=== PATIENT | female | born 1985 | race Two or more races ===

== ENCOUNTER 2016-07-15 10:39 | Emergency (ER) | payer SELFPAY ==
[2016-07-15 10:56] VITALS: BP 114/75; PULSE 72; TEMP 98.3; BMI 26.4
[2016-07-15] MEDS ORDERED: KETOROLAC TROMETHAMINE 60 MG/2 ML VIAL IM ONE (11:44)
[2016-07-15] MEDS ORDERED: KETOROLAC TROMETHAMINE 60 MG/2 ML VIAL ONE (11:50)
--- NOTE | 2016-07-15 11:51 | PDOC ---
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 She states has taken 2 doses of 400 mg of Advil with minimal affect patient denies recent injury to the affected area, sensory changes distally, radiation of pain, swelling to the area, saddle anesthesia or incontinence. Patient states pain is worsened with standing and ambulation. Patient has no other complaints at this time. Occurred: reports: other (2 days) Severity: reports: moderate Pain Location: reports: back Method of Injury: Yes: other Loss of Consciousness: no loss of consciousness Associated Symptoms (Fall): trouble walking (pain with ambulation) Past History - Travel Traveled outside of the country in the last 30 days: No Close contact w/someone who was outside of country & ill: No - Past Medical History Allergies/Adverse Reactions: Allergies Allergy/AdvReac Type Severity Reaction Status Date / Time No Known Allergies Allergy Verified 07/15/16 11:34 Home Medications: Ambulatory Orders Cyclobenzaprine HCl [Flexeril 10 mg] 5 mg PO BID PRN #12 tablet 07/15/16 Naproxen [EC-Naprosyn] 375 mg PO BID PRN #14 tablet.ec 07/15/16 - Psycho/Social/Smoking Cessation Hx Suicidal Ideation: No Smoking History: Never smoked Have you smoked in the past 12 months: No Information on smoking cessation initiated: No Hx Alcohol Use: No Drug/Substance Use Hx: No Patient Lives Alone: No Lives with/in: family Trauma Specific PMHX - Complaint Specific PMHX Back Injury: Yes Review of Systems - Review of Systems Able to Perform ROS?: Yes Constitutional: No: Symptoms Reported Musculoskeletal: Yes: Back Pain Integumentary: No: Symptoms Reported Neurological: No: Symptoms reported Endocrine: No: Symptoms Reported Hematologic/Lymphatic: No: Symptoms Reported *Physical Exam - Vital Signs Last Vital Signs Temp Pulse Resp BP Pulse Ox 98.3 F 72 16 114/75 97 07/15/16 10:51 07/15/16 10:51 07/15/16 10:51 07/15/16 10:51 07/15/16 10:51 - Physical Exam General Appearance: Yes: Nourished, Appropriately Dressed. No: Apparent Distress Neck: positive: Supple. negative: Tender, Decreased range of motion Cardiovascular: positive: Regular Rhythm, Regular Rate. negative: Murmur Musculoskeletal: positive: Muscle Spasm (left paraspinous at l4 level), Vertebral Tenderness (l4 tenderness) Extremity: positive: Normal Capillary Refill. 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 Patient on exam had point tenderness at L4 and laterally to the left at the paraspinous muscle region. Patient has no sensory changes or decreased strength. Patient ordered for lumbar x-ray, and Toradol 07/15/16 13:14 Patient states then much better and is able to ambulate and sit up without difficulty. X-ray negative for acute findings. Patient be discharged home with medication if pain is to return, rest, and apply ice. *DC/Admit/Observation/Transfer Diagnosis at time of Disposition: Strain of lumbar paraspinal muscle Qualifiers: Encounter type: initial encounter Qualified Code(s): S39.012A - Strain of muscle, fascia and tendon of lower back, initial encounter - Discharge Dispostion Disposition: HOME Condition at time of disposition: Improved - Prescriptions Prescriptions: Naproxen [EC-Naprosyn] 375 mg PO BID PRN #14 tablet.ec PRN Reason: Back Pain Cyclobenzaprine HCl [Flexeril 10 mg] 5 mg PO BID PRN #12 tablet PRN Reason: Back Pain - Patient Instructions Printed Discharge Instructions: DI for Low Back Pain Additional Instructions: Please take Naprosyn and Flexeril as prescribed. Rest, and apply ice to the affected area 72 hours. - Post Discharge Activity Work/School Note: Back to Work
== END 2016-07-15 13:26 | disposition home or self-care (01) ==
LOC: JERFT 10:39 → JER 10:39 → JERFT 13:26
PROC: 3E0333Z Introduction of Anti-inflammatory into Peripheral Vein, Percutaneous Approach (ICD-10-PCS; principal; 2016-07-15)
DX: S39.012A Strain of muscle, fascia and tendon of lower back, initial encounter (principal); X58.XXXA Exposure to other specified factors, initial encounter; Y93.9 Activity, unspecified; Y92.9 Unspecified place or not applicable
CPT/HCPCS: 72100-TC; 99281-25